=== PATIENT | female | born 1995 | race Two or more races ===

== ENCOUNTER 2019-04-01 19:40 | Inpatient (IN) | payer OTHER ==
[~2019-04-01] VITALS: Ht 160 cm; Wt 70.8 kg
[2019-04-01] MEDS ORDERED: MAALOX/HYOSCYAMINE/LIDOCAINE 45 ML BTL PO ONE (20:30)
[2019-04-01] MEDS ORDERED: MAALOX/HYOSCYAMINE/LIDOCAINE 45 ML BTL ONE (20:42)
--- NOTE | 2019-04-01 20:42 | NUR ---
PT HAS CO OF EPIGASTRIC PAIN STARTIN TODAY W N/V. FAMILY AT BEDSIDE ASSISTING W CARE. PT DENIES HEALTH HX. AMBULATED TO BATHROOM FOR UA, NO NEEDS AT THIS TIME. MEDICATED PER ORDERS.
[2019-04-01 20:44] LABS: BASOPHILS # (AUTO) 0.01 x10^3/uL (0-0.1); BASOPHILS % (AUTO) 0 % (0-1); EOSINOPHILS # (AUTO) 0.14 x10^3/uL (0-0.4); EOSINOPHILS % (AUTO) 1 % (1-7); LYMPHOCYTES # (AUTO) 0.78 x10^3/uL (1-3.4); LYMPHOCYTES % (AUTO) 6 % (22-44); MD NO; MEAN CORPUSCULAR HEMOGLOBIN 31.3 pg (27.0-34.8); MEAN CORPUSCULAR VOLUME 94.8 fL (80-100); MEAN PLATELET VOLUME 9.7 fL (7.4-10.4); MONOCYTES # (AUTO) 0.15 x10^3/uL (0.2-0.8); MONOCYTES % (AUTO) 1 % (2-9); NEUTROPHILS # (AUTO) 11.29 x10^3/uL (1.8-6.8); NEUTROPHILS % (AUTO) 91 % (42-75); PLATELET COUNT 345 x10^3/uL (130-400); RED CELL DISTRIBUTION WIDTH 12.7 % (9.6-15.2)
[2019-04-01 20:46] LABS: ALANINE AMINOTRANSFERASE 234 U/L (12-78); ALBUMIN 3.4 g/dL (3.4-5.0); ANION GAP 7 mmol/L (5-15); CALCIUM 8.4 mg/dL (8.5-10.1); CHLORIDE 106 mmol/L (98-107); CREATININE 1.11 mg/dL (0.55-1.02)
[2019-04-01 20:48] LABS: ALKALINE PHOSPHATASE 271 U/L (45-117); TOTAL PROTEIN 7.3 g/dL (6.4-8.2)
--- NOTE | 2019-04-01 20:54 | NUR ---
PT IN IMAGING REPORT TO MARU Villegas
[2019-04-01 21:06] LABS: CULTURE INDICATED? YES; MICROSCOPIC INDICATED
--- NOTE | 2019-04-01 21:10 | NUR ---
Report received from Nazario RN. This RN to assume care. Patient is in no apparent distress. Respirations even and unlabored. UA collected. Patient medicated per jun.
[2019-04-01 21:25] LABS: HCG UR SG 1.023 (1.003-1.030)
--- NOTE | 2019-04-01 22:04 | NUR ---
ERP in room
[2019-04-01] MEDS ORDERED: ONDANSETRON 2MG/ML, 2ML IVPush PRN ×2 (23:00→23:30)
[2019-04-01] MEDS ORDERED: MORPHINE SULFATE 4 MG/ML, 1ML IVPush PRN (23:00)
[2019-04-01] MEDS ORDERED: ONDANSETRON 2MG/ML, 2ML ONE (23:02)
--- NOTE | 2019-04-01 23:19 | NUR ---
Patient c/o nausea. Meds administered per mar. Patient denies pain at this time.
[2019-04-01] MEDS ORDERED: BISACODYL 10 MG SUPP PR PRN (23:30)
[2019-04-01] MEDS ORDERED: morphine SULFATE 10 MG/ML, 1ML IVPush PRN (23:30)
--- NOTE | 2019-04-01 23:30 | NUR ---
Report given to PINKY Villasenor. Patient to be transferred to room 359.
[2019-04-02] MEDS: SODIUM CHLORIDE 0.9% 1,000 ML IV SCH ×3 (00:46→20:36)
[2019-04-02] MEDS: CEFTRIAXONE PMX 1GM/50ML 50 ML IV SCH (00:46)
[2019-04-02 01:01] VITALS: BP 96/60
[2019-04-02 05:54] LABS: BASOPHILS # (AUTO) 0.04 x10^3/uL (0-0.1); BASOPHILS % (AUTO) 0 % (0-1); EOSINOPHILS # (AUTO) 0.21 x10^3/uL (0-0.4); EOSINOPHILS % (AUTO) 2 % (1-7); LYMPHOCYTES # (AUTO) 2.01 x10^3/uL (1-3.4); LYMPHOCYTES % (AUTO) 19 % (22-44); MD NO; MEAN CORPUSCULAR HEMOGLOBIN 31.6 pg (27.0-34.8); MEAN CORPUSCULAR HGB CONC 33.4 g/dL (32.4-35.8); MEAN CORPUSCULAR VOLUME 94.7 fL (80-100); MEAN PLATELET VOLUME 9.6 fL (7.4-10.4); MONOCYTES # (AUTO) 0.54 x10^3/uL (0.2-0.8); MONOCYTES % (AUTO) 5 % (2-9); NEUTROPHILS # (AUTO) 8.06 x10^3/uL (1.8-6.8); NEUTROPHILS % (AUTO) 74 % (42-75); PLATELET COUNT 307 x10^3/uL (130-400); RED CELL DISTRIBUTION WIDTH 12.9 % (9.6-15.2)
[2019-04-02 06:02] LABS: ANION GAP 5 mmol/L (5-15); CALCIUM 8.5 mg/dL (8.5-10.1); CHLORIDE 108 mmol/L (98-107)
[2019-04-02 06:04] LABS: ALANINE AMINOTRANSFERASE 289 U/L (12-78); ALKALINE PHOSPHATASE 309 U/L (45-117); BILIRUBIN,TOTAL 1.3 mg/dL (0.2-1.0); CREATININE 1.11 mg/dL (0.55-1.02); TOTAL PROTEIN 6.7 g/dL (6.4-8.2)
[2019-04-02 09:14] VITALS: BP 89/56
[2019-04-02] MEDS: METRONIDAZOLE PMX 500MG/100ML 100 ML IV SCH ×2 (11:53→20:36)
[2019-04-02 13:55] VITALS: BP_SYST 86; BP_SYST 87; BP_DIAS 52; BP_DIAS 53
[2019-04-02 17:33] VITALS: BP 89/56
[2019-04-02 19:58] VITALS: BP 95/59
[2019-04-03] MEDS: CEFTRIAXONE PMX 1GM/50ML 50 ML IV SCH (00:47)
[2019-04-03 01:32] VITALS: BP 96/60
[2019-04-03] MEDS: METRONIDAZOLE PMX 500MG/100ML 100 ML IV SCH ×3 (04:02→20:54)
[2019-04-03 05:44] LABS: INTERNATIONAL NORMALIZED RATIO 1.02 (0.93-1.1); PROTHROMBIN TIME 10.7 Seconds (9.6-11.5)
[2019-04-03 05:50] LABS: CHLORIDE 111 mmol/L (98-107)
[2019-04-03 05:55] LABS: BASOPHILS # (AUTO) 0.02 x10^3/uL (0-0.1); BASOPHILS % (AUTO) 0 % (0-1); EOSINOPHILS # (AUTO) 0.24 x10^3/uL (0-0.4); EOSINOPHILS % (AUTO) 3 % (1-7); LYMPHOCYTES # (AUTO) 2.36 x10^3/uL (1-3.4); LYMPHOCYTES % (AUTO) 33 % (22-44); MD NO; MEAN CORPUSCULAR HEMOGLOBIN 31.7 pg (27.0-34.8); MEAN CORPUSCULAR HGB CONC 33.2 g/dL (32.4-35.8); MEAN CORPUSCULAR VOLUME 95.4 fL (80-100); MONOCYTES # (AUTO) 0.46 x10^3/uL (0.2-0.8); MONOCYTES % (AUTO) 7 % (2-9); NEUTROPHILS # (AUTO) 4.02 x10^3/uL (1.8-6.8); NEUTROPHILS % (AUTO) 57 % (42-75); PLATELET COUNT 254 x10^3/uL (130-400); RED CELL DISTRIBUTION WIDTH 12.9 % (9.6-15.2)
[2019-04-03 06:01] LABS: ALANINE AMINOTRANSFERASE 164 U/L (12-78); ALBUMIN 2.9 g/dL (3.4-5.0); ALKALINE PHOSPHATASE 232 U/L (45-117); ANION GAP 8 mmol/L (5-15); BILIRUBIN,TOTAL 0.6 mg/dL (0.2-1.0); CALCIUM 8.5 mg/dL (8.5-10.1); CREATININE 0.97 mg/dL (0.55-1.02); TOTAL PROTEIN 6.5 g/dL (6.4-8.2)
[2019-04-03] MEDS ORDERED: PROMETHAZINE 25 MG/ML, 1ML IV PRN (07:30)
[2019-04-03] MEDS ORDERED: hydrALAzine 20 MG/ML, 1ML IV PRN (07:30)
[2019-04-03] MEDS ORDERED: ONDANSETRON 2MG/ML, 2ML IV PRN (07:30)
[2019-04-03] MEDS ORDERED: HYDROmorphone 2 MG/ML, 1ML IVPush PRN (07:30)
[2019-04-03] MEDS ORDERED: LABETALOL 5MG/ML, 20ML IV PRN (07:30)
[2019-04-03] MEDS ORDERED: FENTANYL PF 100 MCG/2ML IV PRN (07:30)
[2019-04-03] MEDS ORDERED: MEPERIDINE/PF 25MG/ML,1ML IVPush PRN (07:30)
[2019-04-03] MEDS ORDERED: OXYcodone 5 MG/5 ML ORAL.SOL UDC PO PRN (07:30)
[2019-04-03] MEDS ORDERED: FENTANYL PF 100 MCG/2ML ONE ×2 (07:47→10:03)
[2019-04-03] MEDS ORDERED: MIDAZOLAM 1 MG/ML, 2ML ONE (07:47)
[2019-04-03] MEDS ORDERED: PROPOFOL 10 MG/ML, 20ML ONE (09:26)
[2019-04-03] MEDS ORDERED: SUCCINYLCHOLINE 20 MG/ML, 10ML ONE (09:26)
[2019-04-03] MEDS ORDERED: ONDANSETRON 2MG/ML, 2ML ONE (09:26)
[2019-04-03] MEDS ORDERED: DEXAMETHASONE 4 MG/ML, 1ML ONE (09:27)
[2019-04-03] MEDS ORDERED: OMNIPAQUE 350 MG/ML, 50 ML BOTTLE ONE (09:30)
[2019-04-03] MEDS ORDERED: GLUCAGON 1 MG ONE (09:38)
[2019-04-03] MEDS ORDERED: SODIUM CHLORIDE 0.9% PF 10ML ONE (09:39)
[2019-04-03] MEDS ORDERED: METOPROLOL 1 MG/ML, 5ML ONE (09:42)
[2019-04-03] MEDS ORDERED: INDOMETHACIN 50 MG SUPP.RECT ONE (10:17)
[2019-04-03] MEDS ORDERED: MEPERIDINE/PF 25MG/ML,1ML ONE (10:20)
[2019-04-03] MEDS ORDERED: INDOMETHACIN 50 MG SUPP.RECT PR ONE (11:00)
[2019-04-03] MEDS: SODIUM CHLORIDE 0.9% 1,000 ML IV SCH (11:52)
[2019-04-03 14:03] VITALS: BP 101/65
[2019-04-03 20:05] VITALS: BP 104/69
[2019-04-04] MEDS: CEFTRIAXONE PMX 1GM/50ML 50 ML IV SCH
[2019-04-04 00:34] VITALS: BP 93/58
[2019-04-04] MEDS: METRONIDAZOLE PMX 500MG/100ML 100 ML IV SCH (04:47)
[2019-04-04 06:46] VITALS: BP 125/71
[2019-04-04] MEDS: SODIUM CHLORIDE 0.9% 1,000 ML IV SCH ×2 (08:37)
[2019-04-04 08:41] LABS: ALANINE AMINOTRANSFERASE 104 U/L (12-78); ALBUMIN 2.7 g/dL (3.4-5.0); ANION GAP 6 mmol/L (5-15); CALCIUM 8.3 mg/dL (8.5-10.1); CHLORIDE 111 mmol/L (98-107)
[2019-04-04 08:44] LABS: ALKALINE PHOSPHATASE 191 U/L (45-117); BILIRUBIN,TOTAL 0.6 mg/dL (0.2-1.0); CREATININE 0.99 mg/dL (0.55-1.02); TOTAL PROTEIN 6.1 g/dL (6.4-8.2)
[2019-04-04 09:00] LABS: BASOPHILS # (AUTO) 0.02 x10^3/uL (0-0.1); BASOPHILS % (AUTO) 0 % (0-1); EOSINOPHILS % (AUTO) 1 % (1-7); LYMPHOCYTES # (AUTO) 2.62 x10^3/uL (1-3.4); LYMPHOCYTES % (AUTO) 35 % (22-44); MD NO; MEAN CORPUSCULAR HEMOGLOBIN 31.2 pg (27.0-34.8); MEAN CORPUSCULAR HGB CONC 33.9 g/dL (32.4-35.8); MEAN CORPUSCULAR VOLUME 92.1 fL (80-100); MEAN PLATELET VOLUME 9.1 fL (7.4-10.4); MONOCYTES # (AUTO) 0.49 x10^3/uL (0.2-0.8); MONOCYTES % (AUTO) 7 % (2-9); NEUTROPHILS # (AUTO) 4.19 x10^3/uL (1.8-6.8); NEUTROPHILS % (AUTO) 57 % (42-75); PLATELET COUNT 283 x10^3/uL (130-400); RED BLOOD COUNT 3.89 x10^6/uL (3.82-5.3); RED CELL DISTRIBUTION WIDTH 12.6 % (9.6-15.2)
[2019-04-04] MEDS ORDERED: METR-90 PO (11:56)
[2019-04-04] MEDS ORDERED: CEFI200T PO ×2 (11:56)
[2019-04-04 12:11] VITALS: BP 99/64
[2019-04-07] MEDS ORDERED: CEFD300C37 PO (14:38)
== END 2019-04-04 13:15 | disposition home or self-care (01) | DRG 445 ==
LOC: ED 20:29 → EDIP 22:54 → 3N 23:40
PROVIDERS: ADMIT Family Medicine; ATTEND Hospitalist
PROC: BF131ZZ Fluoroscopy of Gallbladder and Bile Ducts using Low Osmolar Contrast (ICD-10-PCS; 2019-04-03)
PROC: 0FC98ZZ Extirpation of Matter from Common Bile Duct, Via Natural or Artificial Opening Endoscopic (ICD-10-PCS; principal; 2019-04-03 08:30)
DX: K80.70 Calculus of gallbladder and bile duct without cholecystitis without obstruction (principal); N39.0 Urinary tract infection, site not specified; K80.30 Calculus of bile duct with cholangitis, unspecified, without obstruction
CPT/HCPCS: 36415; 74181; 74328; 76700; 80053; 81001; 81025; 83690; 85025; 85610; 87086; 93005; 99285; G0378; J0696; J1100; J2250; J2405; J2704; J3010; Q9967; C1769; J0330; J1610; J7030